=== PATIENT | female | born 1990 | race Caucasian/White ===

== ENCOUNTER 2017-10-31 15:11 | Emergency (ER) | payer BC ==
[~2017-10-31] VITALS: Ht 160 cm; Wt 52.4 kg
[~2017-10-31 15:11] MED LIST: AMOX875T PO; FLUT1SPR5 EACH NARE
[2017-10-31 15:16] VITALS: BP 137/68; PULSE 88; RESP 18; TEMP 99.2; O2SAT 98
--- NOTE | 2017-10-31 15:34 | PD ---
HPI Chief Complaint: Complaint Time Seen by Provider: 15:24 Travel History International Travel<30 days: No Contact w/Intl Traveler<30days: No Traveled to known affect area: No History of Present Illness HPI 27-year-old female with urinary frequency for 2 days associated with dysuria. No vomiting. No fever. Onset gradual. Last menstruation was 10 days prior. No abnormal discharge or bleeding. Severity moderate. PFSH Past Medical History ?: Not Social History Tobacco Use: No Allergies-Medications (Allergen,Severity, Reaction): Coded Allergies: No Known Allergies (Unverified Adverse Reaction, Unknown, 10/31/17) Reported Meds & Prescriptions Reported Meds & Active Scripts Active No Active Prescriptions or Reported Medications Review of Systems General / Constitutional: No: Fever Genitourinary: Positive: Frequency Physical Exam Narrative GENERAL: 27 yo F WNWD, NAD SKIN: Warm and dry. HEAD: Normocephalic. EYES: No scleral icterus. No injection or drainage. NECK: Supple, trachea midline. No JVD or lymphadenopathy. CARDIOVASCULAR: Regular rate and rhythm without murmurs, gallops, or rubs. RESPIRATORY: Breath sounds equal bilaterally. No accessory muscle use. GASTROINTESTINAL: Soft. Minimal TTP suprapubic abdomen. No flank TTP. MUSCULOSKELETAL: No cyanosis, or edema. BACK: Nontender without obvious deformity. No CVA tenderness. Data Data Last Documented VS Vital Signs Date Time Temp Pulse Resp B/P (MAP) Pulse Ox O2 Delivery O2 Flow Rate FiO2 10/31/17 15:16 99.2 88 18 137/68 (91) 98 VS reviewed Orders Orders Ed Urine Pregnancytest Poc (10/31/17 15:14) Ed Discharge Order (10/31/17 15:34) MDM Medical Decision Making Medical Screen Exam Complete: Yes Emergency Medical Condition: Yes Medical Record Reviewed: Yes Differential Diagnosis UTI pyelonephritis intrauterine Narrative Course Urine is negative Appear coverage for UTI with Cipro as below Diagnosis Primary Impression: Cystitis Referrals: Primary Care Physician call for appointment Med/Other Pt SpecificInfo: Prescription(s) given Scripts Ciprofloxacin (Cipro) 250 Mg Tab 250 MG PO BID for Infection for 5 Days, #10 TAB 0 Refills Prov: Aurelio Greer MD 10/31/17 Disposition: 01 DISCHARGE HOME Condition: Stable Aurelio Greer MD Oct 31, 2017 15:34
[2017-10-31] MEDS ORDERED: CIPR250T52 PO (15:35)
== END 2017-10-31 15:44 | disposition home or self-care (01) ==
LOC: PHED 15:11 → EDSEX 15:11 → PHED 15:44
DX: N30.90 Cystitis, unspecified without hematuria (principal)
CPT/HCPCS: 84703; 99283

== ENCOUNTER 2018-04-22 08:11 | Emergency (ER) | payer BC ==
[~2018-04-22] VITALS: Ht 160 cm; Wt 55.0 kg
[~2018-04-22 08:11] MED LIST changes: -AMOX875T PO; +CIPR250T52 PO; -FLUT1SPR5 EACH NARE
[2018-04-22 08:14] VITALS: BP 141/66; PULSE 75; RESP 16; TEMP 98.6; O2SAT 100
[2018-04-22] MEDS ORDERED: IBUPROFEN 600 MG TAB PO ONE (08:30)
--- NOTE | 2018-04-22 08:35 | PD ---
HPI Chief Complaint: Injury Time Seen by Provider: 08:25 Travel History International Travel<30 days: No Contact w/Intl Traveler<30days: No Traveled to known affect area: No History of Present Illness HPI 27-year-old female presents the ED for evaluation of left elbow pain. Rated 7/ 10, throbbing in quality. Onset just before arrival. 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 She states that her arm was caught up in the machine and it was "hyperextended." Pain radiates towards the shoulder and towards the wrist. Exacerbated by pronation and supination or flexion and extension of the elbow. Patient denies numbness, tingling, weakness. She denies previous injury to the area. She denies risk of . Treated with ice just before arrival. [facility] Past Medical History Medical History: Denies Significant Hx Immunizations Current: Yes Tetanus Vaccination: > 5 Years ?: Not Social History Alcohol Use: Yes (OCC) Tobacco Use: No Substance Use: No Allergies-Medications (Allergen,Severity, Reaction): Coded Allergies: No Known Allergies (Unverified Adverse Reaction, Unknown, 10/31/17) Reported Meds & Prescriptions Reported Meds & Active Scripts Active Ibuprofen 600 Mg Tab 600 Mg PO Q8HR PRN Review of Systems Except as stated in HPI: all other systems reviewed are Neg Physical Exam Narrative GENERAL: Well-nourished, well-developed white female no acute distress. SKIN: Focused skin assessment warm/dry. HEAD: Normocephalic. EYES: No scleral icterus. No injection or drainage. NECK: Supple, trachea midline. No JVD or lymphadenopathy. CARDIOVASCULAR: Regular rate and rhythm without murmurs, gallops, or rubs. RESPIRATORY: Breath sounds equal bilaterally. No accessory muscle use. GASTROINTESTINAL: Abdomen soft, non-tender, nondistended. MUSCULOSKELETAL: No cyanosis, or edema. FOCUSED LEFT UPPER EXTREMITY EXAM: 2+ DP pulse. No edema. No ecchymosis. Tender to palpation of the posterior elbow. Pain elicited with supination or pronation. Tender to palpation of the musculature of the upper arm. Neurovascularly intact distally. BACK: Nontender without obvious deformity. No CVA tenderness. Data Data Last Documented VS Vital Signs Date Time Temp Pulse Resp B/P (MAP) Pulse Ox O2 Delivery O2 Flow Rate FiO2 04/22/18 08:14 98.6 75 16 141/66 (91) 100 Orders Orders Elbow, Complete (4 Vws) (04/22/18 08:30) Ice/Cold Pack (04/22/18 08:30) Ibuprofen (Motrin) (04/22/18 08:30) Ed Discharge Order (04/22/18 09:20) Boaz Bandage (04/22/18 09:20) MDM Medical Decision Making Medical Screen Exam Complete: Yes Emergency Medical Condition: Yes Differential Diagnosis Sprain versus strain versus fracture versus dislocation versus other Narrative Course 27-year-old female presents the ED for evaluation of left elbow pain. 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 She states that her arm was " yanked and hyperextended." Vitals reviewed. Patient has tenderness to the joint and surrounding musculature on presentation. Pain elicited with pronation, supination, flexion and extension. Ice pack was applied. Patient was administered 600 mg ibuprofen. X-ray reveals no acute bony injury. I suspect strain, possibly sprain. Boaz wrap was applied. Patient is prescribed a short course of anti-inflammatories. She is instructed to return to normal, gentle activity as tolerated, avoid overuse for the next few days, follow with the orthopedist. She indicated understanding of instructions and is agreeable to care plan. The patient is stable and discharged home. Diagnosis Primary Impression: Pain in left elbow Additional Impression: Elbow strain Qualified Codes: S56.912A - Strain of unspecified muscles, fascia and tendons at forearm level, left arm, initial encounter Referrals: Orthopedist Primary Care Physician Additional Instructions: Rest, ice, elevate the extremity. Apply ice no longer than 10-15 minutes per hour a few times a day. 600 mg ibuprofen up to 3 times a day as needed for pain. Return to normal, gentle activity as tolerated. No heavy lifting or overuse for the next week Follow up with orthopedist or your primary care provider. Return to the ED for any urgent or emergent medical condition. Med/Other Pt SpecificInfo: Prescription(s) given Scripts Ibuprofen (Ibuprofen) 600 Mg Tab 600 MG PO Q8HR Y for PAIN, #15 TAB 0 Refills Prov: Elisabeth Kirk MD 04/22/18 Disposition: 01 DISCHARGE HOME Condition: Stable Kellie Esteves Apr 22, 2018 08:35
[2018-04-22] MEDS ORDERED: IBUP-232 PO (09:11)
--- NOTE | 2018-04-22 09:17 | RADRPT ---
EXAM DATE: 04/22/2018 9:15 AM EDT AGE/SEX: 27 years / Female INDICATIONS: Left elbow pain, fall. CLINICAL DATA: This is the patient's initial encounter. Patient reports that signs and symptoms have been present for 1 day and indicates a pain score of 9/10. MEDICAL/SURGICAL HISTORY: None. None. COMPARISON: No prior exams available for comparison. FINDINGS: Bony structures are intact and in normal alignment. Joints are intact without dislocation or signifi cant arthropathy. Osseous density is normal. Soft tissues are unremarkable. No radiopaque foreign bodies seen. CONCLUSION: 1. No acute fracture or dislocation. Electronically signed by: Wes Mendieta MD 04/22/2018 9:16 AM EDT
== END 2018-04-22 09:31 | disposition home or self-care (01) ==
LOC: NEPD 08:11
DX: M25.522 Pain in left elbow (principal); S56.912A Strain of unspecified muscles, fascia and tendons at forearm level, left arm, initial encounter; W31.82XA Contact with other commercial machinery, initial encounter; Y99.0 Civilian activity done for income or pay
CPT/HCPCS: 73080; 99283